=== PATIENT | male | born 1950 | race Caucasian/White ===

== ENCOUNTER 2019-12-29 07:12 | Outpatient (CLI) | payer BC, OTHER ==
[2019-12-29 14:19] LABS: #Basophils 0.1 thou/uL (0.0-0.2); #Eosinphils 0.2 thou/uL (0.0-0.7); #Lymphocytes 1.7 thou/uL (1.20-3.40); #Monocytes 0.6 thou/uL (0.11-0.59); #Neutrophils 3.6 thou/uL (1.40-6.50); %Basophils 1.4 % (0.0-1.0); %Eosinophils 3.3 % (0.0-10.0); %Lymphocytes 28.1 % (21.0-51.0); %Monocytes 9.4 % (0.0-10.0); %Neutrophils 57.9 % (42.0-75.0); Hemoglobin 16.5 g/dL (14.0-18.0); Mean Corpuscular HGB CONC 30.4 g/dL (32.0-36.0); Mean Corpuscular Hemoglobin 26.4 pg (27.0-31.0); Mean Corpuscular Volume 86.7 fL (78.0-98.0); Mean Platelet Volume 9.9 fL (7.4-10.4); Platelet Count 224 thou/uL (130-400); RBC Distribution Width 17.3 % (11.5-14.5); Red Blood Cell (RBC) Count 6.27 mill/uL (4.70-6.10); White Blood Cell (WBC) Count 6.2 thou/uL (4.8-10.8)
[2019-12-29 14:29] LABS: INR-International Normal Ratio 1.1; Prothrombin Time 14.3 sec (12.0-14.7)
[2019-12-29 15:19] LABS: Anion Gap 13 mmol/L (10-20); BUN (Urea Nitrogen) 21 mg/dL (8.4-25.7); Calc. Creatinine Clearance 0 mL/min (70-130); Calcium 9.5 mg/dL (7.8-10.44); Carbon Dioxide 25 mmol/L (23-31); Chloride 104 mmol/L (98-107); Estimated GFR-MDRD 62; Glucose 170 mg/dL (80-115); Potassium 4.4 mmol/L (3.5-5.1); Sodium 138 mmol/L (136-145)
--- NOTE | 2019-12-29 16:20 | EKG ---
Test Reason : Blood Pressure : / mmHG Vent. Rate : 077 BPM Atrial Rate : 077 BPM P-R Int : 192 ms QRS Dur : 100 ms QT Int : 380 ms P-R-T Axes : 053 011 009 degrees QTc Int : 430 ms Sinus rhythm with occasional Premature ventricular complexes Nonspecific ST abnormality Cannot rule out Inferior infarct , age undetermined Abnormal ECG Confirmed by LISA SERNA ([id number]) on 12/29/2019 4:20:29 PM Referred By: NIXON Confirmed By:LISA SERNA
[2019-12-30 14:21] LABS: SARS-CoV-2 MS2 Positive; SARS-CoV-2 N Gene Negative; SARS-CoV-2 S Gene Negative; SARS-CoV-2 by NAA Not Detected (NotDetected); SARS-CoV-2 orf1ab Negative
== END 2019-12-29 07:13 | disposition home or self-care (01) ==
LOC: LABBT 07:12
PROVIDERS: ATTEND Orthopaedic Surgery
DX: Z01.818 Encounter for other preprocedural examination (principal); Z11.59 Encounter for screening for other viral diseases; M17.11 Unilateral primary osteoarthritis, right knee
CPT/HCPCS: 80048; 85025; 85610; 87081; 87635; 93005; 93010; U0003

== ENCOUNTER 2020-03-15 10:48 | Outpatient (CLI) | payer BC, OTHER ==
[2020-03-15 18:06] LABS: #Eosinphils 0.2 thou/uL (0.0-0.7); #Lymphocytes 2.9 thou/uL (1.20-3.40); #Monocytes 0.7 thou/uL (0.11-0.59); %Basophils 0.5 % (0.0-1.0); %Eosinophils 1.6 % (0.0-10.0); %Lymphocytes 29.8 % (21.0-51.0); %Monocytes 7.2 % (0.0-10.0); Hemoglobin 17.7 g/dL (14.0-18.0); Mean Corpuscular HGB CONC 31.7 g/dL (32.0-36.0); Mean Corpuscular Volume 94.8 fL (78.0-98.0); Mean Platelet Volume 8.1 fL (7.4-10.4); Platelet Count 232 thou/uL (130-400); RBC Distribution Width 18.1 % (11.5-14.5); Red Blood Cell (RBC) Count 5.91 mill/uL (4.70-6.10); White Blood Cell (WBC) Count 9.8 thou/uL (4.8-10.8)
[2020-03-15 18:18] LABS: Anion Gap 13 mmol/L (10-20); BUN (Urea Nitrogen) 18 mg/dL (8.4-25.7); Calc. Creatinine Clearance 0 mL/min (70-130); Calcium 9.2 mg/dL (7.8-10.44); Carbon Dioxide 24 mmol/L (23-31); Chloride 105 mmol/L (98-107); Estimated GFR-MDRD 82; Glucose 146 mg/dL (80-115); Potassium 4.4 mmol/L (3.5-5.1); Sodium 138 mmol/L (136-145)
[2020-03-16 11:01] LABS: SARS-CoV-2 MS2 Positive; SARS-CoV-2 N Gene Negative; SARS-CoV-2 S Gene Negative; SARS-CoV-2 by NAA Not Detected (NotDetected); SARS-CoV-2 orf1ab Negative
--- NOTE | 2020-03-18 12:02 | EKG ---
Test Reason : PREOP Blood Pressure : / mmHG Vent. Rate : 081 BPM Atrial Rate : 081 BPM P-R Int : 198 ms QRS Dur : 108 ms QT Int : 380 ms P-R-T Axes : 070 -12 021 degrees QTc Int : 441 ms Sinus rhythm with frequent Premature ventricular complexes Inferior infarct (cited on or before 29-DEC-2019) Abnormal ECG Confirmed by ZACARIAS GUO ([id number]) on 03/18/2020 12:01:50 PM Referred By: NIXON Confirmed By:ZACARIAS GUO
== END 2020-03-15 10:49 | disposition home or self-care (01) ==
LOC: LABBT 10:48
PROVIDERS: ATTEND Orthopaedic Surgery
DX: Z01.818 Encounter for other preprocedural examination (principal); Z20.828 Contact with and (suspected) exposure to other viral communicable diseases
CPT/HCPCS: 80048; 85025; 87635; 93005; 93010; U0003

== ENCOUNTER 2020-03-19 05:50 | Observation (INO) | payer BC ==
--- NOTE | 2020-03-16 09:35 | HP ---
HISTORY OF PRESENT ILLNESS: The patient is a 69-year-old male, who underwent right total knee replacement on 01/02/2020. He initially did well, but he has had persistent problems with stiffness despite aggressive physical therapy and use of a continuous passive motion machine at home. Pain has not been a problem, but he continues to have significant stiffness and difficulty walking. PAST MEDICAL HISTORY: As noted above. The patient has had previous left total hip replacement and left total knee replacement. He has a history of atrial fibrillation and is on Eliquis, which he has stopped preoperatively. He also has history of hypertension and gout, diet-controlled diabetes, previous episode of congestive heart failure. CURRENT MEDICATIONS: Include; 1. Flonase. 2. Allopurinol. 3. Labetalol. 4. Lasix. 5. Eliquis, which he stopped on 03/15/2020. ALLERGIES: HE HAS NO KNOWN ALLERGIES. FAMILY HISTORY: Otherwise unremarkable. SOCIAL HISTORY: Otherwise unremarkable. REVIEW OF SYSTEMS: Otherwise unremarkable. PHYSICAL EXAMINATION: GENERAL: Reveals a healthy male. HEENT: Unremarkable. NECK: Supple. CHEST: Clear. HEART: Regular rate and rhythm. ABDOMEN: Soft, nontender. RECTAL: Deferred. GENITAL: Deferred. EXTREMITIES: Pertinent findings of the right knee, there is some slight swelling, but no definite effusion. His incision is well healed. There is a small scab on the inferior aspect of the incision. There are no signs of infection. Range of motion is 10 to 75 degrees. There is no instability. There is no point tenderness. NEUROLOGIC: Neurovascular exam is intact. IMAGING STUDIES: Previous x-rays show good alignment of the knee components. IMPRESSION: Arthrofibrosis, right knee, status post right total knee replacement. PLAN: Manipulation of right knee under anesthesia, followed by resumption of aggressive physical therapy. Nature of the procedure, length of recovery, potential complications such as incomplete relief, persistent stiffness or fracture and need for additional treatment or additional surgery were discussed in detail. Job ID: [id number]
[2020-03-16 11:19] VITALS: BMI 27.6
[2020-03-19] MEDS ORDERED: Fentanyl 100 MCG/2 ML VIAL ONE ×4 (06:30→10:01)
[2020-03-19] MEDS ORDERED: Midazolam HCl 2 mg/2 ml Vial ONE (06:30)
[2020-03-19] MEDS ORDERED: Dexamethasone 4 mg/ml Vial ONE (06:36)
[2020-03-19] MEDS ORDERED: Ketorolac Tromethamine 30 MG/ML VIAL ONE (09:26)
[2020-03-19] MEDS ORDERED: PROPOFOL 200 MG/20 ML VIAL ONE ×2 (09:26)
[2020-03-19] MEDS ORDERED: Succinylcholine Chloride 20 MG/ML 10 ml SYRINGE FS ONE (09:26)
[2020-03-19] MEDS ORDERED: EPHEDRINE 25 MG/5 ML SYRINGE ONE (09:26)
[2020-03-19] MEDS ORDERED: Ondansetron PF 4 MG/2 ML Vial ONE (09:26)
[2020-03-19] MEDS ORDERED: Bupivacaine HCl 0.5%/Epinephrine 1:200,000/PF 30 ml Vial ONE (09:26)
[2020-03-19] MEDS ORDERED: Fentanyl 100 MCG/2 ML VIAL SLOW IVP PRN (09:42)
[2020-03-19] MEDS ORDERED: Sodium Chloride 0.9% 1,000 ML IV SCH (09:45)
--- NOTE | 2020-03-19 09:55 | OP ---
DATE OF PROCEDURE: 03/19/2020 PREOPERATIVE DIAGNOSIS: Arthrofibrosis right knee, status post right total knee replacement. POSTOPERATIVE DIAGNOSIS: Arthrofibrosis right knee, status post right total knee replacement. PROCEDURE PERFORMED: Manipulation of right knee under anesthesia. ANESTHESIA: General plus single-shot femoral nerve block. DESCRIPTION OF PROCEDURE: After satisfactory anesthesia was induced in supine position, the patient's knee was gently manipulated with gravity assistance in gently pressure in both extension and flexion. He was quite stiff and was not regaining whole lot of motion. I then put him in an arthroscopy leg wallace and let his leg hanging over the edge of the bed and with gravity assistance, gently manipulated the leg without using undue force. This was done over the gradual period of time for a total of almost 45 minutes. Following this, he had improved motion. Preoperatively, he had approximately 10 to 70 and postmanipulation, he had 5 to 105 and almost 110 degrees with assistance. This was documented with photographs. He was then awakened, taken to recovery room in stable condition. Sequential compression devices were applied to both legs and in the recovery room, he was placed immediately on continuous passive motion machine. He will be admitted for 23-hour observation for physical therapy, CPM, and pain management. There were no apparent intraoperative complications. The estimated blood loss was zero. Job ID: [id number]
[2020-03-19] MEDS: HYDROcodone/Acetaminophen 10/325 mg Tablet PO PRN ×3 (11:20→20:09)
[2020-03-19] MEDS: Carvedilol 6.25 MG TAB PO SCH (20:08)
[2020-03-19] MEDS: Sacubitril 49 MG/Valsartan 51 MG TABLET PO SCH (20:09)
[2020-03-19] MEDS ORDERED: HTP 100 MG PO SCH (21:00)
[2020-03-19] MEDS ORDERED: Atorvastatin Calcium 40 MG TAB PO SCH (21:00)
[2020-03-20] MEDS: HYDROcodone/Acetaminophen 10/325 mg Tablet PO PRN ×2 (03:27→08:32)
[2020-03-20] MEDS: Sacubitril 49 MG/Valsartan 51 MG TABLET PO SCH (08:30)
[2020-03-20] MEDS: Carvedilol 6.25 MG TAB PO SCH (08:31)
[2020-03-20] MEDS ORDERED: Allopurinol 300 MG TAB PO SCH (09:00)
[2020-03-20] MEDS ORDERED: Cholecalciferol 1,000 UNITS (25 MCG) TAB PO SCH (09:00)
[2020-03-20] MEDS ORDERED: Magnesium Oxide 250 MG TAB PO SCH (09:00)
[2020-03-20] MEDS ORDERED: Multivit, Therapeutic 1 TAB PO SCH (09:00)
[2020-03-20] MEDS ORDERED: Loratadine 10 MG TAB PO SCH (09:00)
[2020-03-20] MEDS ORDERED: Apixaban 2.5 MG TAB PO SCH (09:00)
[2020-03-20] MEDS ORDERED: Ascorbic Acid 500 mg Chewable Tablet PO SCH (09:00)
[2020-03-20] MEDS ORDERED: Furosemide 40 MG TAB PO SCH (09:00)
[2020-03-20 11:25] VITALS: BP 162/52; TEMP 98
[2020-03-20] MEDS ORDERED: FLU VACC QS2020-21(65YR UP)/PF 240 MCG/0.7 ML SYRINGE IM ONE (11:45)
--- NOTE | 2020-03-21 14:29 | DIS ---
DATE OF ADMISSION: 03/19/2020 DATE OF DISCHARGE: 03/20/2020 PREOPERATIVE DIAGNOSIS: Arthrofibrosis of right knee, status post total knee replacement. POSTOPERATIVE DIAGNOSIS: Arthrofibrosis of right knee, status post total knee replacement. PROCEDURE PERFORMED: Patient underwent a manipulation of right knee under anesthesia. HOSPITAL COURSE: Hospital stay was unremarkable. He used his CPM machine throughout the post procedure and through the night and did quite well. His pain was moderate. He has had up to about a 4, but medications helped him quite extensively. DISCHARGE CONDITION: Good/stable. DISPOSITION: Home. FOLLOWUP: Follow up with Dr. Prakash would be per clinic scheduling. DISCHARGE MEDICATIONS: Given with usage instructions. Job ID: [id number]
== END 2020-03-20 11:33 | disposition home or self-care (01) ==
LOC: CANSCHSDC → SDC 05:50 → SURG A 09:04
PROVIDERS: ADMIT Orthopaedic Surgery; ATTEND Orthopaedic Surgery
PROC: 0SQCXZZ Repair Right Knee Joint, External Approach (ICD-10-PCS; principal; 2020-03-19)
DX: M24.661 Ankylosis, right knee (principal); I11.0 Hypertensive heart disease with heart failure; I50.9 Heart failure, unspecified; E11.9 Type 2 diabetes mellitus without complications; M10.9 Gout, unspecified; F32.9 Major depressive disorder, single episode, unspecified; Z79.01 Long term (current) use of anticoagulants; Z79.899 Other long term (current) drug therapy; Z86.73 Personal history of transient ischemic attack (TIA), and cerebral infarction without residual deficits; Z87.891 Personal history of nicotine dependence; Z91.018 Allergy to other foods; Z96.641 Presence of right artificial hip joint; Z96.651 Presence of right artificial knee joint
CPT/HCPCS: 90471; 90662; 96360; 96361; G0008; G0378; J0690; J1100; J1885; J2250; J2405; J2704; J3010